=== PATIENT | male | born 1995 | race Caucasian/White ===

== ENCOUNTER 2023-09-23 06:27 | Emergency (ER) | payer OTHER ==
[~2023-09-23] VITALS: Ht 177.8 cm; Wt 83.4 kg
[2023-09-23 06:43] VITALS: BP 121/79; PULSE 79; RESP 18; TEMP 97.9; O2SAT 98
== END 2023-09-23 10:11 | disposition left against medical advice (07) ==
LOC: ER 06:29
DX: R07.0 Pain in throat (principal); Z53.21 Procedure and treatment not carried out due to patient leaving prior to being seen by health care provider